=== PATIENT | female | born 1995 | race Caucasian/White ===

== ENCOUNTER 2016-10-16 19:36 | Emergency (ER) | payer SELFPAY ==
[2016-10-16] MEDS ORDERED: AMOXICILLIN TRIHYDRATE 250 MG CAPSULE ONE (21:18)
[2016-10-16] MEDS ORDERED: PREDNISONE 20 MG TABLET ONE (21:18)
== END 2016-10-16 21:36 | disposition home or self-care (01) ==
LOC: ED 19:36
DX: J02.0 Streptococcal pharyngitis (principal)
CPT/HCPCS: 87880; 99283 ×2; A9270; J7512